=== PATIENT | female | born 1980 | race Caucasian/White ===

== ENCOUNTER 2020-02-23 19:32 | Emergency (ER) | payer SELFPAY ==
[~2020-02-23] VITALS: Ht 165.1 cm; Wt 59.0 kg
[2020-02-23 20:59] VITALS: BP 151/99
[2020-02-23] MEDS ORDERED: CLINDAMYCIN 600 MG/4 ML VL IM ONE (21:00)
== END 2020-02-23 21:48 | disposition home or self-care (01) ==
LOC: ER 19:36
DX: L02.414 Cutaneous abscess of left upper limb (principal); Z88.6 Allergy status to analgesic agent
CPT/HCPCS: 96372